=== PATIENT | female | born 1955 | race African-American/Black ===

== ENCOUNTER 2017-01-15 07:56 | Emergency (ER) | payer MEDICAID ==
[~2017-01-15] VITALS: Ht 170.2 cm; Wt 87.0 kg
[~2017-01-15 07:56] MED LIST: AMLO10TA80 PO; IBUP-2030 PO; METO100T5 PO; SIMV20TA6 PO; TRIA1CAP6 PO
[2017-01-15 08:06] VITALS: BP 117/69
[2017-01-15] MEDS ORDERED: VISCOUS LIDOCAINE 2% 15 ML UDC MM PRN (09:00)
== END 2017-01-15 10:47 | disposition home or self-care (01) ==
LOC: ER 08:19
DX: J03.80 Acute tonsillitis due to other specified organisms (principal); B96.89 Other specified bacterial agents as the cause of diseases classified elsewhere; F17.210 Nicotine dependence, cigarettes, uncomplicated; F12.10 Cannabis abuse, uncomplicated; Z88.2 Allergy status to sulfonamides; Z88.6 Allergy status to analgesic agent; Z91.040 Latex allergy status; Z91.013 Allergy to seafood
CPT/HCPCS: 87070; 87430; 99284